=== PATIENT | male | born 1965 | race Caucasian/White ===

== ENCOUNTER 2018-03-21 06:29 | Day surgery (SDC) | payer OTHER ==
[2018-03-21] MEDS ORDERED: BUPIVACAINE 0.25% (MPF) 30 ML INJ (07:05)
[2018-03-21] MEDS ORDERED: HYDROmorphONE (0.2 MG/ML) 10ML SYG IV ×2 (07:30)
[2018-03-21] MEDS ORDERED: LABETALOL HCL 20MG INJ IV (07:30)
[2018-03-21] MEDS ORDERED: FENTAnyl 50 MCG/ML VIAL IV ×2 (07:30)
[2018-03-21] MEDS ORDERED: EPHEDrine SULFATE 50 MG/5 ML SYG IV (07:30)
[2018-03-21] MEDS ORDERED: METOCLOPRAMIDE 10 MG INJ IV (07:30)
[2018-03-21] MEDS ORDERED: OXYCODONE/ACETAMINOPHEN (5/325) TAB PO ×2 (07:30)
[2018-03-21] MEDS ORDERED: MIDAZOLAM 1 MG/ML 2 ML INJ IV (07:30)
[2018-03-21] MEDS ORDERED: MEPERIDINE 100 MG INJ (07:52)
[2018-03-21] MEDS ORDERED: LIDOCAINE 2% (SDV) 5 ML INJ (07:52)
[2018-03-21] MEDS ORDERED: PROPOFOL 20 ML (07:52)
[2018-03-21] MEDS: MEPERIDINE 25 MG INJ IV (09:06)
[2018-03-21] MEDS: hydrALAzine 20 MG INJ IV (09:32)
[2018-03-21] MEDS: HYDROmorphONE (0.2 MG/ML) 10ML SYG IV (09:43)
[2018-03-21] MEDS: FENTAnyl 50 MCG/ML VIAL IV (09:43)
[2018-03-21] MEDS: ONDANSETRON 4 MG INJ IV (09:47)
[2018-03-21] MEDS: DIPHENHYDRAMINE 50 MG INJ IV (10:55)
== END 2018-03-21 11:59 | disposition home or self-care (01) ==
LOC: SDS 06:29
DX: G56.22 Lesion of ulnar nerve, left upper limb (principal); E11.9 Type 2 diabetes mellitus without complications; J45.909 Unspecified asthma, uncomplicated
CPT/HCPCS: 64718; 82962; 88304; 88311